=== PATIENT | female | born 1955 | race African-American/Black ===

== ENCOUNTER → 2018-02-21 | Outpatient (CLI) | payer MEDICARE, MEDICAID ==
[~2018-02-21] MED LIST: ASPI-1159 PO; CYAN10009 PO; CYCL5TAB PO; DIPH25CA83 PO; DOCU-138 PO; MONT10TA21 PO; OXYC-100 PO; REGADENOSON 0.4 MG/5 ML IV ONE; ROSU5TAB PO; TOPI50TA PO; VALA10002 PO
== END | disposition home or self-care (01) ==
LOC: NM 07:14
PROVIDERS: ATTEND Internal Medicine Cardiovascular Disease
DX: R07.89 Other chest pain (principal)
CPT/HCPCS: 78452; 93017; A9500; J2785